=== PATIENT | female | born 1975 | race Two or more races ===

== ENCOUNTER 2018-09-17 00:10 | Emergency (ER) | payer OTHER ==
[~2018-09-17] VITALS: Ht 175.3 cm; Wt 127.0 kg
== END 2018-09-17 04:14 | disposition home or self-care (01) ==
LOC: ER 00:10
DX: K80.20 Calculus of gallbladder without cholecystitis without obstruction (principal)

== ENCOUNTER 2018-09-30 22:40 | Inpatient (IN) | payer OTHER ==
[~2018-09-30] VITALS: Ht 177.8 cm; Wt 127.0 kg
--- NOTE | 2018-09-30 22:45 | NUR ---
SE RECIBE PACIENTE QUE REFIERE DOLOR ABDOMINAL AREA DERECHA. PACIENTE REFIERE NELSON VOMITADO HOY X3.
--- NOTE | 2018-09-30 23:58 | NUR ---
SE RECIBE FEMINA ALERTA Y ORIENTADA POR MARQUITA ESFERAS, EN CAMA CON BARANDAS SEGURAS Y ELEVADAS. SE ORIENTA SOBRE TRATAMIENTO. SE NICHOLE MUESTRAS DE LABORATORIO ORDENADAS. SE ADMINISTRAN MEDICAMENTOS ORDENADOS. SE MANTIENE EN OBSERVACION POR CAMBIOS.
--- NOTE | 2018-10-01 01:00 | NUR ---
SE ORIENTA PACIENTE SOBRE TRATAMIENTO MEDICO EL CUAL REFIERE ENTENDER, SE ADMINISTRA MEDICAMENTO INTRAMUSCULAR EN GLUTEO DERECHO/LADO SUPERIOR EXTERNO. PACIENTE TOLERA INTERVENCION DEL RN.
--- NOTE | 2018-10-01 07:55 | NUR ---
SE RECIBE PACIENTE DE TURNO ANTERIOR.EN JUNO CON LAS BARANDAS ELEVADAS. ESTA ALERTA Y ORIENTADA,[place] POR FAMILIAR.AREA DE VENOPUNCION ESTA LIMPIA Y SECA,GLADYS DE EDEMA. ORIENTADA SOBRE PROCEDIMIENTOS A LLEVARSE A CABO,LO CUAL REFIERE COMPRENDER. MANTENIDA CON CABEZERA A 45 GRADOS,BARANDAS ELEVADAS,TIMBRE ACCESIBLE Y EN OBSERVACION CONSNTANTE POR CAMBIOS EN CONDICION.
[2018-10-03] MEDS ORDERED: OMEPRAZOLE40 MG PO (15:39)
[2018-10-07] MEDS ORDERED: ULTRACET PO ×2 (07:30→13:30)
[2018-10-07] MEDS ORDERED: OMEPRAZOLE40 MG PO (13:30)
[2018-10-07] MEDS ORDERED: ACTIGALL300 MG PO (13:30)
== END 2018-10-07 18:05 | disposition home or self-care (01) | DRG 419 ==
LOC: ER 22:40 → SURH 10-01 14:50 → SEC-K 10-01 14:50 → SURH 10-02 05:33
PROVIDERS: Surgery; ADMIT Internal Medicine Geriatric Medicine
PROC: BF37ZZZ Magnetic Resonance Imaging (MRI) of Pancreas (ICD-10-PCS; 2018-10-01)
PROC: BW40ZZZ Ultrasonography of Abdomen (ICD-10-PCS; 2018-10-01)
PROC: 0F798DZ Dilation of Common Bile Duct with Intraluminal Device, Via Natural or Artificial Opening Endoscopic (ICD-10-PCS; 2018-10-05)
PROC: BF00YZZ Plain Radiography of Bile Ducts using Other Contrast (ICD-10-PCS; 2018-10-06)
PROC: 0FT44ZZ Resection of Gallbladder, Percutaneous Endoscopic Approach (ICD-10-PCS; principal; 2018-10-06 17:45)
DX: K80.71 Calculus of gallbladder and bile duct without cholecystitis with obstruction (principal); E66.01 Morbid (severe) obesity due to excess calories; R94.5 Abnormal results of liver function studies; R10.31 Right lower quadrant pain; E80.6 Other disorders of bilirubin metabolism

== ENCOUNTER 2019-01-26 10:49 | Day surgery (SDC) | payer OTHER ==
[~2019-01-26 10:49] MED LIST: ACTIGALL300 MG PO; OMEPRAZOLE40 MG PO; ULTRACET PO
[2019-01-27] MEDS ORDERED: DICY20TA PO (15:13)
== END 2019-01-26 15:50 | disposition home or self-care (01) ==
LOC: AMB-ENDOS 10:49
DX: K80.50 Calculus of bile duct without cholangitis or cholecystitis without obstruction (principal); K44.9 Diaphragmatic hernia without obstruction or gangrene

== ENCOUNTER 2019-01-27 10:09 | Emergency (ER) | payer OTHER ==
[~2019-01-27] VITALS: Ht 177.8 cm; Wt 127.0 kg
[2019-01-27] MEDS ORDERED: DICY20TA PO (15:13)
== END 2019-01-27 15:52 | disposition home or self-care (01) ==
LOC: ER 10:09
DX: R10.13 Epigastric pain (principal)

== ENCOUNTER 2019-01-31 09:53 | Emergency (ER) | payer OTHER ==
[~2019-01-31] VITALS: Ht 177.8 cm; Wt 127.0 kg
[~2019-01-31 09:53] MED LIST changes: +DICY20TA PO
== END 2019-01-31 11:15 | disposition home or self-care (01) ==
LOC: ER 09:53
DX: K29.60 Other gastritis without bleeding (principal); N39.0 Urinary tract infection, site not specified

== ENCOUNTER 2019-01-31 16:01 | Outpatient (CLI) | payer OTHER | END 2019-01-31 16:14 | disposition home or self-care (01) | LOC: LAB 16:01 | DX: R11.0 Nausea (principal); K80.50 Calculus of bile duct without cholangitis or cholecystitis without obstruction; R10.10 Upper abdominal pain, unspecified; K44.9 Diaphragmatic hernia without obstruction or gangrene ==

== ENCOUNTER 2019-02-02 07:56 | Outpatient (CLI) | payer OTHER | END 2019-02-02 08:05 | disposition home or self-care (01) | LOC: LAB 07:56 | DX: K80.00 Calculus of gallbladder with acute cholecystitis without obstruction (principal) ==

== ENCOUNTER 2019-02-22 06:52 | Outpatient (CLI) | payer OTHER | END 2019-02-22 07:02 | disposition home or self-care (01) | LOC: LAB 06:52 | DX: K80.50 Calculus of bile duct without cholangitis or cholecystitis without obstruction (principal); R74.0 Nonspecific elevation of levels of transaminase and lactic acid dehydrogenase [LDH]; K44.9 Diaphragmatic hernia without obstruction or gangrene ==

== ENCOUNTER 2019-04-30 18:09 | Emergency (ER) | payer OTHER ==
[~2019-04-30] VITALS: Ht 177.8 cm; Wt 127.0 kg
== END 2019-04-30 19:52 | disposition home or self-care (01) ==
LOC: ER 18:09
DX: J06.9 Acute upper respiratory infection, unspecified (principal)

== ENCOUNTER 2024-06-10 14:53 | Emergency (ER) | payer OTHER ==
[~2024-06-10] VITALS: Ht 177.8 cm; Wt 129.3 kg
[2024-06-10] MEDS ORDERED: COZAAR25 MG PO (16:05)
[2024-06-10] MEDS ORDERED: FAMOTIDINE/PF 20 MG/2 ML VIAL ONE (16:23)
[2024-06-10] MEDS ORDERED: ONDANSETRON HCL 2 MG/ML VIAL ONE (16:23)
[2024-06-10] MEDS ORDERED: 0.9 % SODIUM CHLORIDE 1,000 ML IV ONE (16:30)
[2024-06-10] MEDS ORDERED: ONDANSETRON HCL 2 MG/ML VIAL IV ONE (16:30)
[2024-06-10] MEDS ORDERED: FAMOtidine 10 MG/ML (4ML VIAL) IV ONE (16:30)
[2024-06-10 16:44] LABS: HEMATOCRIT 36.9 % (36.0-45.00); HEMOGLOBIN 12.3 g/dL (12.0-15.00); MEAN CELL VOLUME 76.3 fL (80.00-100.00); MEAN CORPUSCULAR HEMOGLOBIN 25.4 pg (27.00-32.0); MEAN CORPUSCULAR HGB CONC 33.3 g/dl (32.0-36.0); PLATELET COUNT 457 K/uL (150-450); RED BLOOD COUNT 4.84 M/uL (4.00-6.00)
[2024-06-10 17:19] LABS: ALBUMIN 3.7 gm/dL (3.4-5.0); BILIRUBIN TOTAL 0.5 mg/dL (0.3-1.2); CALCIUM 9.4 mg/dL (8.5-10.1); GFR 26.48; POTASSIUM 3.15 mEq/L (3.5-5.1); TOTAL PROTEIN 7.7 gm/dL (6.4-8.2)
[2024-06-10 20:02] LABS: HEMATOCRIT 33.6 % (36.0-45.00); HEMOGLOBIN 11.2 g/dL (12.0-15.00); MEAN CORPUSCULAR HEMOGLOBIN 25.9 pg (27.00-32.0); MEAN CORPUSCULAR HGB CONC 33.3 g/dl (32.0-36.0); PLATELET COUNT 406 K/uL (150-450); RED BLOOD COUNT 4.31 M/uL (4.00-6.00); RED CELL DISTRIBUTION WIDTH 14.8 % (11.5-14.5)
[2024-06-10 20:24] LABS: ALBUMIN 3.3 gm/dL (3.4-5.0); BILIRUBIN TOTAL 0.47 mg/dL (0.3-1.2); CALCIUM 8.8 mg/dL (8.5-10.1); CREATININE SERUM 1.55 mg/dL (0.55-1.02); GFR 35.54; GLOBULINA 3.5 G/DL (2.4-3.5); TOTAL PROTEIN 6.8 gm/dL (6.4-8.2)
[2024-06-10 20:57] LABS: POTASSIUM 2.95 mEq/L (3.5-5.1)
[2024-06-10 21:14] LABS: AMYLASE 50 U/L (25-115); LIPASE 32 U/L (13-75)
[2024-06-10] MEDS ORDERED: POTASSIUM BICARBONATE/CIT AC 25 MEQ TABLET.EFF PO ONE (21:15)
[2024-06-10 22:31] LABS: URINE APPEARANCE Clear; URINE BILIRRUBIN Negative (NEGATIVE); URINE BLOOD Negative; URINE COLOR Orange; URINE GLUCOSE Negative (NEGATIVE); URINE KETONE Negative (NEGATIVE); URINE LEUKOCYTE Trace; URINE NITRATE Negative; URINE PROTEIN Negative (NEGATIVE); URINE UROBILINOGEN 0.2 E.U./dl
[2024-06-10 22:35] LABS: URINE BACTERIA 3816.2 uL (0.0-1933); URINE CAST 2.79 uL (0.0-1.40); URINE EPITHELIAL CELLS 20.8 uL (0.0-38.8); URINE RBC 8.8 uL (0.0-20.8); URINE WBC 31.1 uL (0.0-23.2)
[2024-06-10] MEDS ORDERED: BACTRIM DS TAB1 EACH PO (22:49)
[2024-06-10] MEDS ORDERED: PEPCID AC20 MG PO (22:49)
== END 2024-06-10 23:20 | disposition home or self-care (01) ==
LOC: ER 14:53
PROVIDERS: General Practice
DX: R11.0 Nausea (principal); E86.0 Dehydration; N39.0 Urinary tract infection, site not specified

== ENCOUNTER 2024-11-13 10:07 | Emergency (ER) | payer OTHER ==
[~2024-11-13] VITALS: Ht 177.8 cm; Wt 131.5 kg
[~2024-11-13 10:07] MED LIST changes: +BACTRIM DS TAB1 EACH PO; +COZAAR25 MG PO; +PEPCID AC20 MG PO
[2024-11-13] MEDS ORDERED: CALCIUM CARBON600 M1 PO (10:56)
[2024-11-13] MEDS ORDERED: VITAMIN D3125 MCG PO (10:56)
[2024-11-13] MEDS ORDERED: ADULT LOW DOSE81 M1 PO (10:57)
[2024-11-13] MEDS ORDERED: KETOROLAC TROMETHAMINE 30 MG VIAL ONE (12:12)
[2024-11-13] MEDS ORDERED: TRAMADOL HCL 50 MG TABLET PO ONE (12:15)
[2024-11-13] MEDS ORDERED: 0.9 % SODIUM CHLORIDE 1,000 ML IV ONE (12:15)
[2024-11-13] MEDS ORDERED: KETOROLAC TROMETHAMINE 15 MG VIAL IV ONE (12:15)
[2024-11-13 12:27] LABS: BASO % 0.5 % (0.1-1.2); EOS # 0.10 (0.04-0.54); EOS % 0.7 % (0.7-7.0); LYMPH # 1.85 (1.18-3.74); LYMPH % 13.0 % (19.3-53.1); MEAN PLATELET VOLUME 9.20 fl (9.4-12.4); MONO # 0.80 (0.24-0.82); MONO % 5.6 % (4.7-12.5); NEUT # 11.31 (1.56-6.13); NEUT % 79.6 % (34.0-71.1); RED CELL DISTRIBUTION WIDTH 13.5 % (11.6-14.4)
[2024-11-13 12:48] LABS: BUN CREA RATIO 18.0 (7.0-25.0); CREATININE SERUM 0.82 mg/dL (0.55-1.02); GFR 74.09; GLUCOSE FASTING 98.0 mg/dL (65-100); OSMOLALITY SERUM 280.0 MOSM/KG (275-295)
[2024-11-13] MEDS ORDERED: CLINDAMYCIN PHOSPHATE 150 MG/ML (600mg) IV ONE (17:30)
== END 2024-11-13 18:01 | disposition home or self-care (01) ==
LOC: ER 10:08
PROVIDERS: General Practice
DX: K61.0 Anal abscess (principal); I10 Essential (primary) hypertension; N80.8 Other endometriosis; L02.215 Cutaneous abscess of perineum

== ENCOUNTER 2024-11-13 18:31 | Outpatient (CLI) | payer OTHER ==
[~2024-11-13 18:31] MED LIST changes: +ADULT LOW DOSE81 M1 PO; +CALCIUM CARBON600 M1 PO; +VITAMIN D3125 MCG PO
== END 2024-11-13 18:45 | disposition home or self-care (01) ==
LOC: LAB 18:31 → CLINIC 18:31
PROVIDERS: ATTEND Student in an Organized Health Care Education/Training Program
DX: K61.0 Anal abscess (principal)

== ENCOUNTER 2024-11-15 15:52 | Emergency (ER) | payer OTHER ==
[~2024-11-15] VITALS: Ht 177.8 cm; Wt 131.1 kg
[2024-11-15] MEDS ORDERED: PEPCID AC20 MG (16:14)
[2024-11-15] MEDS ORDERED: AMOX1TAB5 (16:14)
[2024-11-15] MEDS ORDERED: KETO10TA2 PO (16:16)
[2024-11-15 16:17] VITALS: BP 108/76; O2SAT 98
[2024-11-15] MEDS ORDERED: 0.9 % SODIUM CHLORIDE 500 ML IV ONE (17:00)
[2024-11-15] MEDS ORDERED: KETOROLAC TROMETHAMINE 30 MG VIAL IV ONE (17:00)
[2024-11-15] MEDS ORDERED: CEFTRIAXONE SODIUM 2,000 MG VIAL IV ONE (17:00)
[2024-11-15] MEDS ORDERED: CEFTRIAXONE SODIUM 2,000 MG VIAL ONE (17:00)
[2024-11-15] MEDS ORDERED: FAMOTIDINE/PF 20 MG/2 ML VIAL ONE (17:00)
[2024-11-15] MEDS ORDERED: FAMOTIDINE/PF 20 MG/2 ML VIAL IV ONE (17:00)
[2024-11-15] MEDS ORDERED: KETOROLAC TROMETHAMINE 30 MG VIAL ONE (17:00)
[2024-11-15 17:37] LABS: BASO % 0.6 % (0.1-1.2); EOS # 0.21 (0.04-0.54); EOS % 1.8 % (0.7-7.0); LYMPH # 2.11 (1.18-3.74); LYMPH % 17.9 % (19.3-53.1); MEAN PLATELET VOLUME 9.00 fl (9.4-12.4); MONO # 0.74 (0.24-0.82); MONO % 6.3 % (4.7-12.5); NEUT # 8.63 (1.56-6.13); NEUT % 73.1 % (34.0-71.1); RED CELL DISTRIBUTION WIDTH 13.3 % (11.6-14.4)
[2024-11-15 18:12] LABS: INR 0.98
[2024-11-15 18:26] LABS: ALT/SGPT 19.0 U/L (12-78); AST/SGOT 8.0 U/L (15-37); BILIRUBIN TOTAL 0.24 mg/dL (0.3-1.2); BUN CREA RATIO 25.0 (7.0-25.0); CREATININE SERUM 0.81 mg/dL (0.55-1.02); GFR 75.15; GLOBULINA 3.3 G/DL (2.4-3.5); GLUCOSE FASTING 99.0 mg/dL (65-100); OSMOLALITY SERUM 284.0 MOSM/KG (275-295)
== END 2024-11-15 21:11 | disposition home or self-care (01) ==
LOC: ER 15:52
PROVIDERS: General Practice
DX: K61.1 Rectal abscess (principal); L02.215 Cutaneous abscess of perineum; K57.30 Diverticulosis of large intestine without perforation or abscess without bleeding; I10 Essential (primary) hypertension